=== PATIENT | female | born 1955 | race African-American/Black ===

== ENCOUNTER → 2017-04-30 | Emergency (ER) | payer MEDICAID ==
[~2017-04-30] VITALS: Ht 154.9 cm; Wt 54.4 kg
[~2017-04-30] MED LIST: TAMIFLU75 MG ORAL; TYLENOL325 MG ORAL; ZOFRAN ODT4 MG ORAL
--- NOTE | 2017-04-30 15:28 | Emergency Room Report ---
History of Present Illness General Chief Complaint: Flu Like Symptoms Source: Patient Present Illness HPI 62-year-old female with 2 days of generalized body aches, fever and chills, nausea and one episode of vomiting. Patient received flu vaccination Denies chest pain or shortness of breath or abdominal pain hasnt taken any [id number] medications denies history of asthma, COPD or diabetes or renal disease Allergies: Coded Allergies: No Known Allergies (Unverified , 04/30/17) Patient History Past Medical History: HTN Past Surgical History: none Pertinent Family History: none Social History: Denies: smoking, alcohol use, drug use Now: No Immunizations: UTD Reviewed Nursing Documentation: PMH: Agreed, PSxH: Agreed Nursing Documentation-PMH Past Medical History: No History, Except For Hx Hypertension: Yes Physical Exam Vital Signs Date Time Temp Pulse Resp B/P (MAP) Pulse Ox O2 Delivery O2 Flow Rate FiO2 04/30/17 13:48 101.7 97 20 140/74 97 Room Air Sp02 EP Interpretation: reviewed, normal General Appearance: normal inspection, well appearing, no apparent distress, alert, GCS 15, non-toxic Head: normocephalic, atraumatic Eyes: bilateral eye PERRL, bilateral eye EOMI ENT: normal ENT inspection, hearing grossly normal, normal pharynx, no angioedema, normal voice, TMs + canals normal, uvula midline, moist mucus membranes Neck: normal inspection, full range of motion, supple, thyroid normal, no meningismus, no bony tend Respiratory: normal inspection, lungs clear, normal breath sounds, no rhonchi, no respiratory distress, no retraction, no accessory muscle use, no wheezing, speaking full sentences Cardiovascular #1: regular rate, rhythm, no edema, no JVD, normal capillary refill Gastrointestinal: normal inspection, normal bowel sounds, non tender, soft, no mass, no peritonitis, non-distended, no guarding, no hernia, no pulsatile mass Genitourinary: no CVA tenderness Musculoskeletal: normal inspection, back normal, normal range of motion, no calf tenderness, pelvis stable, Reid's Sign negative Neurologic: normal inspection, alert, oriented x3, responsive, director product management III-XII nml as tested, motor strength/tone normal, cerebellar normal, normal gait, speech normal Psychiatric: normal inspection, judgement/insight normal, mood/affect normal, no suicidal/homicidal ideation, no delusions Skin: normal inspection, normal color, no rash Lymphatic: normal inspection, no adenopathy Medical Decision Making Diagnostic Impression: Primary Impression: Influenza-like symptoms ER Course patient with influenza versus URI symptoms Febrile in ER Signs otherwise stable, nonseptic appearing Given patient was symptoms of 2 days and myalgias and fever, recommended treatment with Tamiflu and Tylenol and Zofran as needed for supportive care understands potential adverse effects of Tamiflu, cost advised to followup with PMD aly Anthony with DDX: Plan: Obtain labs, ua, ucx, ucg, CXR, EKG ER course: Patient has remained stable during ED stay. Disposition: Patient is to be discharged to home. Prescriptions given are tamiflu, zofran, tylenol Patient is instructed to follow up with their primary care doctor within 5 days. Strict return precautions discussed with patient such as fever, chills, worsening/severe pain, nausea, vomiting, which may indicate severe illness. Patient verbalizes understanding and agrees with plan. Please note that this Emergency Department Report was dictated using [employer] tape composer operator technology software, occasionally this can lead to erroneous entry secondary to interpretation by the dictation equipment Last Vital Signs Date Time Temp Pulse Resp B/P (MAP) Pulse Ox O2 Delivery O2 Flow Rate FiO2 04/30/17 13:48 101.7 97 20 140/74 97 Room Air Status: improved Disposition: HOME, SELF-CARE Condition: Improved Scripts Acetaminophen (Tylenol) 325 Mg Tablet 650 MG ORAL Q6H Y for Prn Pain/Headache/Temp > 101 for 7 Days, #30 TAB 0 Refills Prov: RAMÍREZ WILLETT M.D. 04/30/17 Ondansetron Odt* (ZOFRAN ODT*) 4 Mg Tab.rapdis 4 MG ORAL Q6H Y for Nausea & Vomiting for 7 Days, #20 TAB 0 Refills Prov: RAMÍREZ WILLETT M.D. 04/30/17 Oseltamivir Phosphate (Tamiflu) 75 Mg Capsule 75 MG ORAL TWICE A DAY for 5 Days, #10 CAP Prov: RAMÍREZ WILLETT M.D. 04/30/17 Patient Instructions: Influenza, Adult, [id number] RAMÍREZ WILLETT M.D. Apr 30, 2017 15:28
[2017-04-30 15:31] VITALS: BP 140/74
== END | disposition home or self-care (01) ==
LOC: EMR 15:45 → MERGE 15:45
DX: J11.1 Influenza due to unidentified influenza virus with other respiratory manifestations (principal); R11.10 Vomiting, unspecified; R50.9 Fever, unspecified; R42 Dizziness and giddiness; I10 Essential (primary) hypertension
CPT/HCPCS: 99283